=== PATIENT | male | born 1985 | race African-American/Black ===

== ENCOUNTER 2016-10-25 10:39 | Inpatient (IN) | payer OTHER ==
[2016-10-25 11:36] VITALS: BMI 25.0
--- NOTE | 2016-10-25 13:32 | HP ---
CIWA Score - CIWA Score Nausea/Vomitin Muscle Tremors: 3 Anxiety: 3 Agitation: 3 Paroxysmal Sweats: 1-Minimal Palms Moist Orientation: 3-Disoriented Date>2 days Tacttile Disturbances: 2-Mild Itch/Numbness/Burn Auditory Disturbances: 2-Mild Harshness/Frighten Visual Disturbances: 2-Mild Sensitivity Headache: 2-Mild CIWA-Ar Total Score: 24 Admission ROS S - HPI Chief Complaint: i amhe re for detox from alcohol,xanaxheroin abused Allergies/Adverse Reactions: Allergies Allergy/AdvReac Type Severity Reaction Status Date / Time egg Allergy Severe Hives Verified 10/25/16 12:25 fish derived Allergy Severe Swelling Verified 10/25/16 12:25 onion Allergy Severe Itching Verified 10/25/16 12:25 No Known Drug Allergies Allergy Verified 10/25/16 12:25 raisins Allergy Severe diarrhea Uncoded 10/25/16 12:25 History of Present Illness: this 31 yeas old male with alcohol,xanax dependence,heroin abused,withdrawal symptom,last detox 06/03/16 to 06/05/16 [facility] syncope anxiety,depression nicotine dependence longest period of sobriety 8 months - Ebola screening Have you traveled outside of the country in the last 21 days: No (N) Have you had contact with anyone from an Ebola affected area: No Have you been sick,other than usual withdrawal symptoms: No Do you have a fever: No - Review of Systems Constitutional: Loss of Appetite, Malaise, Night Sweats, Changes in sleep, Weakness, Unintentional Wgt. Loss EENT: reports: Nose Congestion Respiratory: reports: No Symptoms reported Cardiac: reports: Palpitations GI: reports: Diarrhea, Nausea, Vomiting, Abdominal cramping : reports: No Symptoms Reported Musculoskeletal: reports: Back Pain, Joint Pain, Muscle Pain Integumentary: reports: Dryness Neuro: reports: Headache, Tremors Endocrine: reports: No Symptoms Reported Hematology: reports: No Symptoms Reported Psychiatric: reports: Anxious, Depressed Patient History - Patient Medical History Hx Anemia: No Hx Asthma: No Hx Chronic Obstructive Pulmonary Disease (COPD): No Hx Cancer: No Hx Cardiac Disorders: No Hx Congestive Heart Failure: No Hx Hypertension: No Hx Hypercholesterolemia: No Hx Pacemaker: No HX Cerebrovascular Accident: No Hx Seizures: No Hx Dementia: No Hx Diabetes: No Hx Gastrointestinal Disorders: No Hx Liver Disease: No Hx Genitourinary Disorders: No Hx Sexually Transmitted Disorders: No Hx Renal Disease (ESRD): No Hx Thyroid Disease: No Hx Human Immunodeficiency Virus (HIV): No (NEGATIVE HX LAST 03/08) Hx Hepatitis C: No Hx Depression: Yes (anxiety) Hx Suicide Attempt: No Hx Bipolar Disorder: No Hx Schizophrenia: No Other Medical History: no suicidal,no homicidal - Patient Surgical History Past Surgical History: No Hx Neurologic Surgery: No Hx Cataract Extraction: No Hx Cardiac Surgery: No Hx Lung Surgery: No Hx Breast Surgery: No Hx Breast Biopsy: No Hx Abdominal Surgery: No Hx Appendectomy: No Hx Cholecystectomy: No Hx Genitourinary Surgery: No Hx Section: No Hx Orthopedic Surgery: No Anesthesia Reaction: No - PPD History Previous Implant?: Yes Implanted On Prior [facility] Admission?: Yes Date: 10/24/15 Results: 0 MM PPD to be Administered?: Yes - Smoking Cessation Smoking history: Current every day smoker Have you smoked in the past 12 months: Yes Aproximately how many cigarettes per day: 20 Hx Chewing Tobacco Use: No Initiated information on smoking cessation: Yes 'Breaking Loose' booklet given: 10/25/16 - Substance & Tx. History Hx Alcohol Use: Yes Hx Substance Use: Yes Substance Use Type: Alcohol, Cocaine, Heroin Hx Substance Use Treatment: Yes ([facility] 06/03/16 06/05/16) - Substances Abused Alcohol Route: Oral Frequency: Daily Amount used: 12 beer 24 ozs Age of first use: 15 Date of Last Use: 10/24/16 Cocaine Route: Inhalation Frequency: Daily Amount used: 2gram Age of first use: 18 Date of Last Use: 10/22/16 Heroin Route: Inhalation Frequency: Daily Amount used: 1gm Age of first use: 26 Date of Last Use: 10/22/16 Alprazolam (Xanax) Route: Oral Frequency: 3-6 times per week Amount used: 2 to 6 mgs Age of first use: 26 Date of Last Use: 10/23/16 Family Disease History - Family Disease History Family History: Denies Admission Physical Exam BHS - Vital Signs Vital Signs: Vital Signs - 24 hr 10/25/16 11:34 Temperature 97.4 F L Pulse Rate 70 Respiratory 20 Rate Blood Pressure 129/71 - Physical General Appearance: Yes: Moderate Distress, Tremorous, Irritable, Anxious HEENTM: Yes: Nasal Congestion Respiratory: Yes: Lungs Clear Neck: Yes: Within Normal Limits Breast: Yes: Within Normal Limits Cardiology: Yes: Within Normal Limits, Regular Rhythm, Regular Rate, S1, S2 Abdominal: Yes: Within Normal Limits, Normal Bowel Sounds, Non Tender, Flat, Soft Genitourinary: Yes: Within Normal Limits Back: Yes: Muscle Spasm Musculoskeletal: Yes: Back pain, Joint Stiffness, Muscle Pain Extremities: Yes: Tremors Neurological: Yes: 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 NML intact, Fully Oriented, Alert, Motor Strength 5/5 Integumentary: Yes: Dry Lymphatic: Yes: Within Normal Limits - Diagnostic (1) Alcohol dependence with uncomplicated withdrawal Current Visit: No Status: Acute (2) Cocaine dependence, uncomplicated Current Visit: No Status: Acute (3) Nicotine dependence Current Visit: No Status: Acute Qualifiers: Nicotine product type: cigarettes Substance use status: uncomplicated Qualified Code(s): F17.210 - Nicotine dependence, cigarettes, uncomplicated (4) Sedative, hypnotic or anxiolytic abuse, uncomplicated Current Visit: Yes Status: Acute (5) Weight loss Current Visit: Yes Status: Acute (6) Heroin abuse Current Visit: Yes Status: Acute Cleared for Admission [facility] - Detox or Rehab [facility] Level of Care: Medically Managed Detox Regimen/Protocol: Valium [facility] Breath Alcohol Content Breath Alcohol Content: 0.084 Urine Drug Screen - Results Drug Screen Negative: No Urine Drug Screen Results: ODALIS-Cocaine, BZO-Benzodiazepines
[2016-10-25] MEDS ORDERED: ACETAMINOPHEN 325 MG TABLET (FP) PO PRN (13:47)
[2016-10-25] MEDS ORDERED: diphenhydrAMINE HCL 50 MG CAPSULE PO PRN (13:47)
[2016-10-25] MEDS ORDERED: diazePAM 5 MG TABLET PO PRN (13:47)
[2016-10-25] MEDS ORDERED: MAGNESIUM HYDROX 2400MG/30ML ORAL SUSPENSION 30 ML CUP PO PRN (13:47)
[2016-10-25] MEDS ORDERED: IBUPROFEN 400 MG TABLET (FP) PO PRN (13:47)
[2016-10-25] MEDS ORDERED: P-EPHED 60MG/TRIPROLIDI 2.5MG TABLET PO PRN (13:47)
[2016-10-25] MEDS ORDERED: hydrOXYzine PAMOATE 50 MG CAPSULE (FP) PO PRN (13:47)
[2016-10-25] MEDS ORDERED: LOPERAMIDE HCL 2 MG CAPSULE PO PRN (13:47)
[2016-10-25] MEDS ORDERED: guaiFENesin/D-METHORPHAN HB 10 ML UNIT-DOSE CUPS PO PRN (13:47)
[2016-10-25] MEDS ORDERED: MAGNESIUM CITRATE 300 ML BOTTLE PO PRN (13:47)
[2016-10-25] MEDS ORDERED: MENTHOL/PHENOL 1 EACH UD MM PRN (13:47)
[2016-10-25] MEDS ORDERED: MAG HYDROX/AL HYDROX/SIMETH 30 ML UNIT-DOSE CUP PO PRN (13:47)
[2016-10-25] MEDS ORDERED: CYCLOBENZAPRINE HCL 10 MG TABLET (FP) PO PRN (13:52)
[2016-10-25] MEDS: diazePAM 5 MG TABLET PO SCH ×2 (14:43→22:36)
[2016-10-25] MEDS: NICOTINE 21 MG/24 HOURS TOPICAL PATCH TD SCH (14:44)
[2016-10-25] MEDS ORDERED: diazePAM 5 MG TABLET PO ONE (14:45)
[2016-10-25] MEDS: THIAMINE HCL 100 MG TABLET (FP) PO SCH (22:35)
[2016-10-25] MEDS: NAPROXEN 500 MG TABLET (FP) PO SCH (22:35)
[2016-10-25] MEDS: cloNIDine HCL 0.1 MG TABLET PO SCH (22:35)
[2016-10-25 22:53] LABS: URINE APPEARANCE CLEAR; URINE BILIRUBIN NEGATIVE (NEGATIVE); URINE BLOOD NEGATIVE (NEGATIVE); URINE COLOR YELLOW; URINE GLUCOSE (UA) NEGATIVE (NEGATIVE); URINE KETONE TRACE (NEGATIVE); URINE LEUK ESTERASE NEGATIVE (NEGATIVE); URINE NITRITE NEGATIVE (NEGATIVE); URINE PROTEIN NEGATIVE (NEGATIVE); URINE UROBILINOGEN NEGATIVE E.U./dl (0.2-1.0)
[2016-10-26] MEDS: diazePAM 5 MG TABLET PO SCH ×3 (05:55→22:25)
[2016-10-26] MEDS: NICOTINE 21 MG/24 HOURS TOPICAL PATCH TD SCH (10:25)
[2016-10-26] MEDS: PRENATAL VITAMINS W/ FOLIC ACID TABLET (FP) PO SCH (10:25)
[2016-10-26] MEDS: cloNIDine HCL 0.1 MG TABLET PO SCH ×2 (10:25→22:25)
[2016-10-26] MEDS: NAPROXEN 500 MG TABLET (FP) PO SCH ×2 (10:25→22:25)
[2016-10-26 10:59] LABS: MCH 31.5 pg (25.7-33.7); MCHC 33.2 g/dl (32.0-35.9); MEAN PLT VOLUME 7.9 fl (7.5-11.1); PLATELET COUNT 195 K/MM3 (134-434); RDW 13.4 % (11.9-15.9); WHITE BLOOD COUNT 3.5 K/mm3 (4.0-10.0)
[2016-10-26 11:22] LABS: ALBUMIN 3.9 g/dl (3.4-5.0); CALCIUM 8.8 mg/dL (8.5-10.1); CREATININE 1.5 mg/dL (0.7-1.3); TOT PROT 7.7 g/dl (6.4-8.2)
[2016-10-26 11:43] LABS: HIV 1 & 2 AB NEGATIVE; HIV 1 AGp24 NEGATIVE
--- NOTE | 2016-10-26 13:33 | PN ---
S CIWA - CIWA Score Nausea/Vomitin-No Nausea/No Vomiting Muscle Tremors: 4-Moderate,w/Arms Extend Anxiety: 3 Agitation: 3 Paroxysmal Sweats: 3 Orientation: 0-Oriented Tacttile Disturbances: 0-None Auditory Disturbances: 0-None Visual Disturbances: 0-None Headache: 0-None Present CIWA-Ar Total Score: 13 BHS Progress Note (SOAP) Subjective: ANXIETY,TREMORS,SWEATING,INTERRUPTED SLEEP,RESTLESS Objective: 10/26/16 13:34 Vital Signs - 8 hr 10/26/16 10/26/16 06:46 10:53 Temperature 96.8 F L 97.4 F L Pulse Rate 67 68 Respiratory 18 19 Rate Blood Pressure 128/75 132/86 Laboratory Tests 10/25/16 10/25/16 10/26/16 06:30 22:40 06:30 WBC 3.5 L D RBC 4.55 Hgb 14.3 Hct 43.2 MCV 95.0 MCHC 33.2 RDW 13.4 Plt Count 195 MPV 7.9 Sodium Potassium Chloride Carbon Dioxide Anion Gap BUN Creatinine Creat Clearance w eGFR Random Glucose Calcium Total Bilirubin AST ALT Alkaline Phosphatase Total Protein Albumin Urine Color Yellow Urine Appearance Clear Urine pH 5.0 Ur Specific [place] 1.017 Urine Protein Negative Urine Glucose (UA) Negative Urine Ketones Trace H Urine Blood Negative Urine Nitrite Negative Urine Bilirubin Negative Urine Urobilinogen Negative Ur Leukocyte Esterase Negative RPR Titer HIV 1&2 Antibody Screen Negative HIV P24 Antigen Negative 10/26/16 10/26/16 06:30 06:30 WBC RBC Hgb Hct MCV MCHC RDW Plt Count MPV Sodium 138 Potassium 3.8 Chloride 101 Carbon Dioxide 30 Anion Gap 7 L BUN 19 H D Creatinine 1.5 H D Creat Clearance w eGFR 54.24 Random Glucose 91 Calcium 8.8 Total Bilirubin 1.0 D AST 68 H D ALT 48 D Alkaline Phosphatase 100 D Total Protein 7.7 Albumin 3.9 Urine Color Urine Appearance Urine pH Ur Specific [place] Urine Protein Urine Glucose (UA) Urine Ketones Urine Blood Urine Nitrite Urine Bilirubin Urine Urobilinogen Ur Leukocyte Esterase RPR Titer Nonreactive HIV 1&2 Antibody Screen HIV P24 Antigen LABS NOTED Assessment: 10/26/16 13:35 WITHDRAWAL SX. Plan: CONTINUE DETOX
--- NOTE | 2016-10-26 15:36 | CONSULT ---
[facility] Psychiatric Consult - Data Date of interview: 10/26/16 Admission source: [facility] Identifying data: This is one of multiple admissions to [facility] for this 31 y/ o AA male seeking detox treatment on for alcohol,cocaine,heroin and benzodiazepine (xanax) dependence.Patient is single without children,homeless, unemployed and deprived of any source of income. Substance Abuse History: - Smoking Cessation. Smoking history: Current every day smoker. Have you smoked in the past 12 months: Yes. Aproximately how many cigarettes per day: 20. Hx Chewing Tobacco Use: No. Initiated information on smoking cessation: Yes. 'Breaking Loose' booklet given: 10/25/16. - Substance & Tx. History. Hx Alcohol Use: Yes. Hx Substance Use: Yes. Substance Use Type : Alcohol, Cocaine, Heroin. Hx Substance Use Treatment: Yes ([facility] 06/03/16). - Substances Abused. Alcohol. Route: Oral. Frequency: Daily. Amount used: 12 beer 24 ozs. Age of first use: 15. Date of Last Use: . Cocaine. Route: Inhalation. Frequency: Daily. Amount used: 2gram. Age of first use: 18. Date of Last Use: 10/22/16. Heroin. Route: Inhalation. Frequency: Daily. Amount used: 1gm. Age of first use: 26. Date of Last Use: 10/22/16. Alprazolam (Xanax). Route: Oral. Frequency: 3-6 times per week. Amount used: 2 to 6 mgs. Age of first use: 26. Date of Last Use: 10/23/16. Confirmed by patient. Medical History: Significant for alopecia areata and sciatica. Psychiatric History: Patient denies. Physical/Sexual Abuse/Trauma History: Patient denies. Additional Comment: Urine Drug Screen Results: ODALIS-Cocaine, BZO- Benzodiazepines.Noted. Mental Status Exam - Mental Status Exam Alert and Oriented to: Time, Place, Person Cognitive Function: Good Patient Appearance: Well Groomed Mood: Hopeful, Euthymic Affect: Normal Range Patient Behavior: Appropriate, Cooperative Speech Pattern: Clear Voice Loudness: Normal Thought Process: Goal Oriented Thought Disorder: Not Present Hallucinations: Denies Suicidal Ideation: Denies Homicidal Ideation: Denies Insight/Judgement: Poor Sleep: Well Appetite: Good Muscle strength/Tone: Normal Gait/Station: Normal Psychiatric Findings - Problem List ([place] 1, 2,3) (1) Sedative, hypnotic or anxiolytic abuse, uncomplicated Current Visit: Yes Status: Acute (2) Alcohol dependence with uncomplicated withdrawal Current Visit: Yes Status: Acute (3) Nicotine dependence Current Visit: Yes Status: Acute Qualifiers: Nicotine product type: cigarettes Substance use status: uncomplicated Qualified Code(s): F17.210 - Nicotine dependence, cigarettes, uncomplicated (4) Cocaine dependence, uncomplicated Current Visit: Yes Status: Acute (5) Opioid dependence with withdrawal Current Visit: Yes Status: Acute (6) Substance induced mood disorder Current Visit: Yes Status: Acute (7) Alopecia areata Current Visit: Yes Status: Chronic (8) Sciatica Current Visit: Yes Status: Chronic Qualifiers: Laterality: bilateral Qualified Code(s): M54.31 - Sciatica, right side - Initial Treatment Plan Initial Treatment Plan: Psychoeducation.Detoxification.Observation.
[2016-10-26] MEDS: THIAMINE HCL 100 MG TABLET (FP) PO SCH (22:25)
[2016-10-27] MEDS ORDERED: diazePAM 5 MG TABLET PO SCH (10:00)
[2016-10-27] MEDS: NAPROXEN 500 MG TABLET (FP) PO SCH (10:23)
[2016-10-27] MEDS: PRENATAL VITAMINS W/ FOLIC ACID TABLET (FP) PO SCH (10:23)
[2016-10-27] MEDS: cloNIDine HCL 0.1 MG TABLET PO SCH (10:24)
[2016-10-27] MEDS: NICOTINE 21 MG/24 HOURS TOPICAL PATCH TD SCH (10:24)
--- NOTE | 2016-10-27 11:23 | PN ---
[facility] CIWA - CIWA Score Nausea/Vomitin Muscle Tremors: 3 Anxiety: 3 Agitation: 2 Paroxysmal Sweats: 1-Minimal Palms Moist Orientation: 0-Oriented Tacttile Disturbances: 1-Very Mild Itch/Numbness Auditory Disturbances: 1-Very Mild Visual Disturbances: 1-Very Mild Sensitivity Headache: 2-Mild CIWA-Ar Total Score: 17 BHS Progress Note (SOAP) Subjective: ALERT,IRRITABLE,ANXIOUS,INTERRUPTED SLEEP,TREMOR,INTERRUPTED SLEEP Objective: 10/27/16 11:20 Vital Signs Temperature 96.9 F L 10/27/16 09:48 Pulse Rate 72 10/27/16 09:48 Respiratory Rate 20 10/27/16 09:48 Blood Pressure 113/73 10/27/16 09:48 O2 Sat by Pulse Oximetry (%) EKG NSR NO CHEST PAIN,NO SOB,NO DIZZINESS Laboratory Last Values WBC 3.5 K/mm3 (4.0-10.0) L D 10/26/16 06:30 RBC 4.55 M/mm3 (4.00-5.60) 10/26/16 06:30 Hgb 14.3 GM/dL (11.7-16.9) 10/26/16 06:30 Hct 43.2 % (35.4-49) 10/26/16 06:30 MCV 95.0 fl (80-96) 10/26/16 06:30 MCHC 33.2 g/dl (32.0-35.9) 10/26/16 06:30 RDW 13.4 % (11.9-15.9) 10/26/16 06:30 Plt Count 195 K/MM3 (134-434) 10/26/16 06:30 MPV 7.9 fl (7.5-11.1) 10/26/16 06:30 Sodium 138 mmol/L (136-145) 10/26/16 06:30 Potassium 3.8 mmol/L (3.5-5.1) 10/26/16 06:30 Chloride 101 mmol/L (98-107) 10/26/16 06:30 Carbon Dioxide 30 mmol/L (21-32) 10/26/16 06:30 Anion Gap 7 (8-16) L 10/26/16 06:30 BUN 19 mg/dL (7-18) H D 10/26/16 06:30 Creatinine 1.5 mg/dL (0.7-1.3) H D 10/26/16 06:30 Creat Clearance w eGFR 54.24 (>60) 10/26/16 06:30 Random Glucose 91 mg/dL (74-106) 10/26/16 06:30 Calcium 8.8 mg/dL (8.5-10.1) 10/26/16 06:30 Total Bilirubin 1.0 mg/dL (0.2-1.0) D 10/26/16 06:30 AST 68 U/L (15-37) H D 10/26/16 06:30 ALT 48 U/L (12-78) D 10/26/16 06:30 Alkaline Phosphatase 100 U/L (45-117) D 10/26/16 06:30 Total Protein 7.7 g/dl (6.4-8.2) 10/26/16 06:30 Albumin 3.9 g/dl (3.4-5.0) 10/26/16 06:30 Urine Color Yellow 10/25/16 22:40 Urine Appearance Clear 10/25/16 22:40 Urine pH 5.0 (5.0-8.0) 10/25/16 22:40 Ur Specific [place] 1.017 (1.001-1.035) 10/25/16 22:40 Urine Protein Negative (NEGATIVE) 10/25/16 22:40 Urine Glucose (UA) Negative (NEGATIVE) 10/25/16 22:40 Urine Ketones Trace (NEGATIVE) H 10/25/16 22:40 Urine Blood Negative (NEGATIVE) 10/25/16 22:40 Urine Nitrite Negative (NEGATIVE) 10/25/16 22:40 Urine Bilirubin Negative (NEGATIVE) 10/25/16 22:40 Urine Urobilinogen Negative E.U./dl (0.2-1.0) 10/25/16 22:40 Ur Leukocyte Esterase Negative (NEGATIVE) 10/25/16 22:40 RPR Titer Nonreactive (NONREACTIVE) 10/26/16 06:30 HIV 1&2 Antibody Screen Negative 10/25/16 06:30 HIV P24 Antigen Negative 10/25/16 06:30 Assessment: 10/27/16 11:22 WITHDRAWAL SYMPTOM Plan: CONTINUE DETOX,ENCOURAGE ORAL FLUID,REPEAT CMP IN AM
--- NOTE | 2016-10-27 14:47 | PN ---
S Progress Note Note: PATIENT FEEL MUCH BETTER,LESS WITHDRAWAL SYMPTOM,STATED WOULD LIKE TO BE DISCHARGE IN AM AT 07.00 FOR PERSONAL APPOINTMENT,ADVISE TO DRINK PLENTY OF FLUID,FOLLOW UP WITH PMD FOR MEDICAL PROBLEM AND FOLLOW UP BLOOD TEST
[2016-10-27 17:18] VITALS: BP 109/67; PULSE 79; TEMP 97.9
--- NOTE | 2016-10-27 23:02 | DS ---
[facility] Detox Discharge Summary Admission Date: 10/25/16 Discharge Date: 10/27/16 - History Present History: Alcohol Dependence, Cocaine Dependence, Opioid Dependence, Sedative Dependence Additional Comments: 31 years old male came to [facility] for benzo detox on 10/25/16, original regimen discharge date 10/24/05, been modified to 10/28, patient insists to leave the unit refuses to wait for face to face with the provider Pertinent Past History: nicotine dependence - Physical Exam Results Vital Signs: Vital Signs Temperature 97.9 F 10/27/16 17:17 Pulse Rate 79 10/27/16 17:17 Respiratory Rate 18 10/27/16 17:17 Blood Pressure 109/67 10/27/16 17:17 O2 Sat by Pulse Oximetry (%) Pertinent Admission Physical Exam Findings: withdrawal sx Laboratory Last Values WBC 3.5 K/mm3 (4.0-10.0) L D 10/26/16 06:30 RBC 4.55 M/mm3 (4.00-5.60) 10/26/16 06:30 Hgb 14.3 GM/dL (11.7-16.9) 10/26/16 06:30 Hct 43.2 % (35.4-49) 10/26/16 06:30 MCV 95.0 fl (80-96) 10/26/16 06:30 MCHC 33.2 g/dl (32.0-35.9) 10/26/16 06:30 RDW 13.4 % (11.9-15.9) 10/26/16 06:30 Plt Count 195 K/MM3 (134-434) 10/26/16 06:30 MPV 7.9 fl (7.5-11.1) 10/26/16 06:30 Sodium 138 mmol/L (136-145) 10/26/16 06:30 Potassium 3.8 mmol/L (3.5-5.1) 10/26/16 06:30 Chloride 101 mmol/L (98-107) 10/26/16 06:30 Carbon Dioxide 30 mmol/L (21-32) 10/26/16 06:30 Anion Gap 7 (8-16) L 10/26/16 06:30 BUN 19 mg/dL (7-18) H D 10/26/16 06:30 Creatinine 1.5 mg/dL (0.7-1.3) H D 10/26/16 06:30 Creat Clearance w eGFR 54.24 (>60) 10/26/16 06:30 Random Glucose 91 mg/dL (74-106) 10/26/16 06:30 Calcium 8.8 mg/dL (8.5-10.1) 10/26/16 06:30 Total Bilirubin 1.0 mg/dL (0.2-1.0) D 10/26/16 06:30 AST 68 U/L (15-37) H D 10/26/16 06:30 ALT 48 U/L (12-78) D 10/26/16 06:30 Alkaline Phosphatase 100 U/L (45-117) D 10/26/16 06:30 Total Protein 7.7 g/dl (6.4-8.2) 10/26/16 06:30 Albumin 3.9 g/dl (3.4-5.0) 10/26/16 06:30 Urine Color Yellow 10/25/16 22:40 Urine Appearance Clear 10/25/16 22:40 Urine pH 5.0 (5.0-8.0) 10/25/16 22:40 Ur Specific [place] 1.017 (1.001-1.035) 10/25/16 22:40 Urine Protein Negative (NEGATIVE) 10/25/16 22:40 Urine Glucose (UA) Negative (NEGATIVE) 10/25/16 22:40 Urine Ketones Trace (NEGATIVE) H 10/25/16 22:40 Urine Blood Negative (NEGATIVE) 10/25/16 22:40 Urine Nitrite Negative (NEGATIVE) 10/25/16 22:40 Urine Bilirubin Negative (NEGATIVE) 10/25/16 22:40 Urine Urobilinogen Negative E.U./dl (0.2-1.0) 10/25/16 22:40 Ur Leukocyte Esterase Negative (NEGATIVE) 10/25/16 22:40 RPR Titer Nonreactive (NONREACTIVE) 10/26/16 06:30 HIV 1&2 Antibody Screen Negative 10/25/16 06:30 HIV P24 Antigen Negative 10/25/16 06:30 lab noted - Treatment Hospital Course: Detox Protocol Followed, Responded well - Medication Discharge Medications: Ambulatory Orders Naproxen [Naprosyn -] 500 mg PO BID 06/25/16 - Diagnosis (1) Alcohol dependence with uncomplicated withdrawal Status: Acute (2) Nicotine dependence Status: Acute Qualifiers: Nicotine product type: cigarettes Substance use status: uncomplicated Qualified Code(s): F17.210 - Nicotine dependence, cigarettes, uncomplicated (3) Opioid dependence with withdrawal Status: Acute (4) Weight loss Status: Acute - AMA Did Patient Leave Against Medical Advice: Yes
[2016-10-29] MEDS ORDERED: diazePAM 5 MG TABLET PO SCH (10:00)
== END 2016-10-27 19:36 | disposition left against medical advice (07) | DRG 770 ==
LOC: YASAS 10:39 → Y3N 13:37
PROVIDERS: ADMIT Internal Medicine; ATTEND Internal Medicine
PROC: HZ2ZZZZ Detoxification Services for Substance Abuse Treatment (ICD-10-PCS; principal; 2016-10-25)
DX: F11.23 Opioid dependence with withdrawal (principal); F10.230 Alcohol dependence with withdrawal, uncomplicated; F14.20 Cocaine dependence, uncomplicated; F13.10 Sedative, hypnotic or anxiolytic abuse, uncomplicated; F17.210 Nicotine dependence, cigarettes, uncomplicated; F19.24 Other psychoactive substance dependence with psychoactive substance-induced mood disorder; F41.9 Anxiety disorder, unspecified; L63.9 Alopecia areata, unspecified; M54.31 Sciatica, right side; Z87.898 Personal history of other specified conditions; Z86.79 Personal history of other diseases of the circulatory system
CPT/HCPCS: 36415; 80053; 81003; 85027; 86593; 87389; 93005; 93010

== ENCOUNTER 2016-11-28 19:57 | Inpatient (IN) | payer OTHER ==
--- NOTE | 2016-11-28 20:26 | HP ---
CIWA Score - CIWA Score Nausea/Vomitin Muscle Tremors: 3 Anxiety: 3 Agitation: 2 Paroxysmal Sweats: 2 Orientation: 0-Oriented Tacttile Disturbances: 1-Very Mild Itch/Numbness Auditory Disturbances: 0-None Visual Disturbances: 1-Very Mild Sensitivity Headache: 2-Mild CIWA-Ar Total Score: 16 Admission ROS S - HPI Chief Complaint: WITHDRAWAL SYMPTOMS Allergies/Adverse Reactions: Allergies Allergy/AdvReac Type Severity Reaction Status Date / Time egg Allergy Severe Hives Verified 10/25/16 12:25 onion Allergy Severe Itching Verified 10/25/16 12:25 No Known Drug Allergies Allergy Verified 10/25/16 12:25 raisins Allergy Severe diarrhea Uncoded 10/25/16 12:25 History of Present Illness: 31 Y.O. MALE WITH AN EXTENSIVE HISTORY OF DRUG AND ALCOHOL DEPENDENCE IS SEEKING DETOX FROM ALCOHOL. HE WAS LAST ADMITTED TO [facility] IN 10/2016 HOWEVER HE LEFT AMA. Exam Limitations: No Limitations - Ebola screening Have you traveled outside of the country in the last 21 days: No Have you had contact with anyone from an Ebola affected area: No Do you have a fever: No - Review of Systems Constitutional: Chills, Loss of Appetite, Night Sweats, Changes in sleep, Unintentional Wgt. Loss EENT: reports: Blurred Vision, Tearing, Nose Congestion Respiratory: reports: No Symptoms reported Cardiac: reports: Palpitations GI: reports: Poor Appetite : reports: No Symptoms Reported Musculoskeletal: reports: No Symptoms Reported Integumentary: reports: No Symptoms Reported Neuro: reports: Headache, Tremors Endocrine: reports: No Symptoms Reported Hematology: reports: No Symptoms Reported Psychiatric: reports: Orientated x3 Other Systems: Reviewed and Negative Patient History - Patient Medical History Hx Anemia: No Hx Asthma: No Hx Chronic Obstructive Pulmonary Disease (COPD): No Hx Cancer: No Hx Cardiac Disorders: No Hx Congestive Heart Failure: No Hx Hypertension: No Hx Hypercholesterolemia: No Hx Pacemaker: No HX Cerebrovascular Accident: No Hx Seizures: No Hx Dementia: No Hx Diabetes: No Hx Gastrointestinal Disorders: No Hx Liver Disease: No Hx Genitourinary Disorders: No Hx Sexually Transmitted Disorders: No Hx Renal Disease (ESRD): No Hx Thyroid Disease: No Hx Human Immunodeficiency Virus (HIV): No (NEGATIVE HX LAST 03/08) Hx Hepatitis C: No Hx Depression: Yes (anxiety) Hx Suicide Attempt: No Hx Bipolar Disorder: No Hx Schizophrenia: No - Patient Surgical History Past Surgical History: No Hx Neurologic Surgery: No Hx Cataract Extraction: No Hx Cardiac Surgery: No Hx Lung Surgery: No Hx Breast Surgery: No Hx Breast Biopsy: No Hx Abdominal Surgery: No Hx Appendectomy: No Hx Cholecystectomy: No Hx Genitourinary Surgery: No Hx Section: No Hx Orthopedic Surgery: No Anesthesia Reaction: No - PPD History Previous Implant?: Yes Documented Results: Negative w/proof Implanted On Prior [facility] Admission?: Yes Date: 10/27/16 Results: 0 MM PPD to be Administered?: No - Reproductive History Patient is a Female of Child Bearing Age (11 -55 yrs old): No - Smoking Cessation Smoking history: Current every day smoker Have you smoked in the past 12 months: Yes Aproximately how many cigarettes per day: 10 Hx Chewing Tobacco Use: No Initiated information on smoking cessation: Yes 'Breaking Loose' booklet given: 11/28/16 - Substance & Tx. History Hx Alcohol Use: Yes Hx Substance Use: Yes Substance Use Type: Alcohol, Cocaine Hx Substance Use Treatment: Yes ([facility] ) - Substances Abused Alcohol Route: Oral Frequency: Daily Amount used: 2 PINTS OF LIQUOR & 3 16OZ CANS OF BEER Age of first use: 14 Date of Last Use: 11/28/16 Cocaine Route: Inhalation Frequency: 3-6 times per week Amount used: 4GM Age of first use: 18 Date of Last Use: 11/28/16 KLONOPIN Route: Oral Frequency: 3-6 times per week Amount used: 3MG Age of first use: 26 Date of Last Use: 11/28/16 Family Disease History - Family Disease History Family History: Denies Admission Physical Exam BHS - Vital Signs Vital Signs: Last Vital Signs Temp Pulse Resp BP Pulse Ox 97.2 F L 88 19 147/77 11/28/16 20:50 11/28/16 20:50 11/28/16 20:50 11/28/16 20:50 - Physical General Appearance: Yes: Disheveled, Tremorous, Irritable, Sweating HEENTM: Yes: Nasal Congestion Respiratory: Yes: Chest Non-Tender, Lungs Clear, Normal Breath Sounds, No Respiratory Distress, No Accessory Muscle Use Neck: Yes: No masses,lesions,Nodules, Trachea in good position Breast: Yes: Breast Exam Deferred Cardiology: Yes: Regular Rhythm, Regular Rate Abdominal: Yes: Normal Bowel Sounds, Non Tender, Flat, Soft Genitourinary: Yes: Within Normal Limits Back: Yes: Normal Inspection Musculoskeletal: Yes: full range of Motion, Gait Steady, Pelvis Stable Extremities: Yes: Normal Capillary Refill, Normal Inspection, Normal Range of Motion, Non-Tender Neurological: Yes: Fully Oriented, Alert, Motor Strength 5/5, Normal Mood/Affect , Normal Response Integumentary: Yes: Normal Color, Dry, Warm Lymphatic: Yes: Within Normal Limits - Diagnostic (1) Alcohol dependence with uncomplicated withdrawal Current Visit: Yes Status: Chronic (2) Cocaine dependence, uncomplicated Current Visit: Yes Status: Chronic (3) Nicotine dependence Current Visit: Yes Status: Chronic Qualifiers: Nicotine product type: cigarettes Substance use status: uncomplicated Qualified Code(s): F17.210 - Nicotine dependence, cigarettes, uncomplicated (4) Weight loss Current Visit: Yes Status: Acute Cleared for Admission [facility] - Detox or Rehab [facility] Level of Care: Medically Managed Detox Regimen/Protocol: Librium S Breath Alcohol Content Breath Alcohol Content: 0 Vital Signs - Vital Signs Vital Signs Refused: No Temperature: 97.2 F Temperature Source: Oral Pulse Rate: 88 Respiratory Rate: 19 Blood Pressure: 147/77 BP Location: Left Arm Blood Pressure Position: Sitting - Height Height: 6 ft - Weight Weight: 189 lb Weight Measurement Method: Standing Scale Body Mass Index (BMI): 25.6 Urine Drug Screen - Control Is Test Valid: Yes - Results Drug Screen Negative: No Urine Drug Screen Results: ODALIS-Cocaine
[2016-11-28] MEDS ORDERED: diphenhydrAMINE HCL 50 MG CAPSULE PO PRN (20:39)
[2016-11-28] MEDS ORDERED: MENTHOL/PHENOL 1 EACH UD MM PRN (20:39)
[2016-11-28] MEDS ORDERED: LOPERAMIDE HCL 2 MG CAPSULE PO PRN (20:39)
[2016-11-28] MEDS ORDERED: ACETAMINOPHEN 325 MG TABLET (FP) PO PRN (20:39)
[2016-11-28] MEDS ORDERED: MAG HYDROX/AL HYDROX/SIMETH 30 ML UNIT-DOSE CUP PO PRN (20:39)
[2016-11-28] MEDS ORDERED: guaiFENesin/D-METHORPHAN HB 10 ML UNIT-DOSE CUPS PO PRN (20:39)
[2016-11-28] MEDS ORDERED: MAGNESIUM CITRATE 300 ML BOTTLE PO PRN (20:39)
[2016-11-28] MEDS ORDERED: P-EPHED 60MG/TRIPROLIDI 2.5MG TABLET PO PRN (20:39)
[2016-11-28] MEDS ORDERED: chlordiazePOXIDE HCL 25 MG CAPSULE PO PRN (20:39)
[2016-11-28] MEDS ORDERED: hydrOXYzine PAMOATE 50 MG CAPSULE (FP) PO PRN (20:39)
[2016-11-28] MEDS ORDERED: IBUPROFEN 400 MG TABLET (FP) PO PRN (20:39)
[2016-11-28] MEDS ORDERED: MAGNESIUM HYDROX 2400MG/30ML ORAL SUSPENSION 30 ML CUP PO PRN (20:39)
[2016-11-28] MEDS ORDERED: chlordiazePOXIDE HCL 25 MG CAPSULE PO ONE (20:39)
[2016-11-28 20:50] VITALS: BMI 25.6
[2016-11-28] MEDS: chlordiazePOXIDE HCL 25 MG CAPSULE PO SCH (22:16)
[2016-11-28] MEDS: THIAMINE HCL 100 MG TABLET (FP) PO SCH (22:16)
[2016-11-29] MEDS: chlordiazePOXIDE HCL 25 MG CAPSULE PO SCH ×4 (06:09→22:44)
--- NOTE | 2016-11-29 10:06 | PN ---
S CIWA - CIWA Score Nausea/Vomitin-No Nausea/No Vomiting Muscle Tremors: 4-Moderate,w/Arms Extend Anxiety: 4-Mod. Anxious/Guarded Agitation: 4-Moderately Restless Paroxysmal Sweats: 3 Orientation: 0-Oriented Tacttile Disturbances: 0-None Auditory Disturbances: 0-None Visual Disturbances: 0-None Headache: 0-None Present CIWA-Ar Total Score: 15 BHS Progress Note (SOAP) Subjective: tired sweats shakes interrupted sleep body aches Objective: 11/29/16 10:39 Vital Signs Temperature 97.3 F L 11/29/16 10:19 Pulse Rate 88 11/29/16 10:19 Respiratory Rate 18 11/29/16 10:19 Blood Pressure 136/76 11/29/16 10:19 O2 Sat by Pulse Oximetry (%) Laboratory Tests 11/29/16 11/29/16 07:00 07:00 WBC 4.1 RBC 4.74 Hgb 14.9 Hct 44.3 MCV 93.4 MCHC 33.5 RDW 13.3 Plt Count 164 MPV 8.5 Sodium 136 Potassium 4.0 Chloride 101 Carbon Dioxide 28 BUN 15 D Creatinine 1.4 H Creat Clearance w eGFR 58.73 Random Glucose 82 Calcium 9.0 Total Bilirubin 1.5 H D AST 43 H D ALT 39 Alkaline Phosphatase 94 Total Protein 7.8 Albumin 3.6 labs pending awake/alert ambulating no acute distress Assessment: 11/29/16 10:40 withdrawal sx Plan: continue detox increase fluids labs pending
[2016-11-29 10:09] LABS: MCH 31.3 pg (25.7-33.7); MCHC 33.5 g/dl (32.0-35.9); MEAN CELL VOLUME 93.4 fl (80-96); MEAN PLT VOLUME 8.5 fl (7.5-11.1); PLATELET COUNT 164 K/MM3 (134-434); RDW 13.3 % (11.9-15.9); WHITE BLOOD COUNT 4.1 K/mm3 (4.0-10.0)
[2016-11-29 10:27] LABS: ALBUMIN 3.6 g/dl (3.4-5.0); BILIRUBIN,TOTAL 1.5 mg/dL (0.2-1.0); CREATININE 1.4 mg/dL (0.7-1.3); TOT PROT 7.8 g/dl (6.4-8.2)
[2016-11-29] MEDS: PRENATAL VITAMINS W/ FOLIC ACID TABLET (FP) PO SCH (10:37)
[2016-11-29] MEDS: NICOTINE 14 MG/24 HOURS TOPICAL PATCH TD SCH (10:39)
--- NOTE | 2016-11-29 11:29 | CONSULT ---
[id number] [facility] Identifying data: This is 31 years old male with no psychiatric hospitalization history intopxicated wioth: Alcohol, Cocaine, Klonopin and Nicotine, history of Opiuoids abuse as well Substance Abuse History: - Smoking Cessation. Smoking history: Current every day smoker. Have you smoked in the past 12 months: Yes. Aproximately how many cigarettes per day: 10. Hx Chewing Tobacco Use: No. Initiated information on smoking cessation: Yes. 'Breaking Loose' booklet given: 11/28/16. - Substance & Tx. History. Hx Alcohol Use: Yes. Hx Substance Use: Yes. Substance Use Type : Alcohol, Cocaine. Hx Substance Use Treatment: Yes (DETOX AND REHAB ). - Substances Abused. Alcohol. Route: Oral. Frequency: Daily. Amount used: 2 PINTS OF LIQUOR & 3 16OZ CANS OF BEER. Age of first use: 14. Date of Last Use: 11/28/16. Cocaine. Route: Inhalation. Frequency: 3-6 times per week. Amount used: 4GM. Age of first use: 18. Date of Last Use: 11/28/16. KLONOPIN. Route: Oral. Frequency: 3-6 times per week. Amount used: 3MG. Age of first use: 26. Date of Last Use: 11/28/16 Medical History: Weight loss, Sciatica history Psychiatric History: Patioent reports history of anxiety and Depression, reports no medicatuions taking prior to admission Physical/Sexual Abuse/Trauma History: Unclear Additional Comment: Observation. Detx Unit Care Protocol Mental Status Exam - Mental Status Exam Alert and Oriented to: Person Cognitive Function: Fair Patient Appearance: Unkempt Mood: Sad Affect: Flat Patient Behavior: Sedated Speech Pattern: Delayed Voice Loudness: Mildly Soft/Quiet Thought Process: Circumstantial, Disoriented Thought Disorder: Being Controlled Hallucinations: Denies Suicidal Ideation: Denies Homicidal Ideation: Denies Insight/Judgement: Fair Sleep: Difficulty falling asleep Appetite: Weight loss Muscle strength/Tone: Mild Hypotonicity Gait/Station: Shuffling Additional Comments: Observation. Detx Unit Care Protocol Psychiatric Findings - Problem List ([place] 1, 2,3) (1) Anxiety Status: Acute (2) Depression Status: Acute (3) Substance induced mood disorder Status: Acute (4) Alcohol dependence with uncomplicated withdrawal Status: Chronic (5) Cocaine dependence, uncomplicated Status: Chronic (6) Nicotine dependence Status: Chronic Qualifiers: Nicotine product type: cigarettes Substance use status: uncomplicated Qualified Code(s): F17.210 - Nicotine dependence, cigarettes, uncomplicated (7) Opioid dependence with withdrawal Status: Chronic (8) Sedative, hypnotic or anxiolytic abuse, uncomplicated Status: Chronic (9) Drug-induced mood disorder Status: Suspected - Initial Treatment Plan Initial Treatment Plan: Observation. Detx Unit Care Protocol
--- NOTE | 2016-11-29 13:56 | EKG ---
Test Reason : Blood Pressure : / mmHG Vent. Rate : 073 BPM Atrial Rate : 073 BPM P-R Int : 156 ms QRS Dur : 086 ms QT Int : 382 ms P-R-T Axes : 061 052 062 degrees QTc Int : 420 ms NORMAL SINUS RHYTHM WITH SINUS ARRHYTHMIA SEPTAL INFARCT , AGE UNDETERMINED NONSPECIFIC T WAVE ABNORMALITY NO PREVIOUS ECGS AVAILABLE Confirmed by SARAH JUÁREZ MD ([id number]) on 11/29/2016 1:55:54 PM Referred By: Confirmed By:SARAH JUÁREZ MD
[2016-11-29] MEDS: THIAMINE HCL 100 MG TABLET (FP) PO SCH (22:44)
[2016-11-29 23:39] LABS: URINE APPEARANCE CLEAR; URINE BILIRUBIN NEGATIVE (NEGATIVE); URINE BLOOD NEGATIVE (NEGATIVE); URINE COLOR LTYELLOW; URINE GLUCOSE (UA) NEGATIVE (NEGATIVE); URINE KETONE NEGATIVE (NEGATIVE); URINE LEUK ESTERASE NEGATIVE (NEGATIVE); URINE NITRITE NEGATIVE (NEGATIVE); URINE PROTEIN NEGATIVE (NEGATIVE); URINE UROBILINOGEN NEGATIVE E.U./dl (0.2-1.0)
[2016-11-30] MEDS: chlordiazePOXIDE HCL 25 MG CAPSULE PO SCH ×2 (07:34→10:37)
[2016-11-30 10:34] VITALS: BP 130/79; PULSE 86; TEMP 97.3
[2016-11-30] MEDS: PRENATAL VITAMINS W/ FOLIC ACID TABLET (FP) PO SCH (10:36)
[2016-11-30] MEDS: NICOTINE 14 MG/24 HOURS TOPICAL PATCH TD SCH (10:38)
--- NOTE | 2016-11-30 13:25 | PN ---
[facility] Progress Note Note: pt was found by nursing staff in the room exploring his genital to a female pt. security was called and pt was escorted off the unit.
--- NOTE | 2016-11-30 13:30 | DS ---
[facility] Detox Discharge Summary Admission Date: 11/28/16 Discharge Date: 11/30/16 - History Present History: Alcohol Dependence, Cocaine Dependence, Opioid Dependence, Sedative Dependence - Physical Exam Results Vital Signs: Vital Signs Temperature 97.3 F L 11/30/16 10:33 Pulse Rate 86 11/30/16 10:33 Respiratory Rate 16 11/30/16 10:33 Blood Pressure 130/79 11/30/16 10:33 O2 Sat by Pulse Oximetry (%) - Medication Discharge Medications: Ambulatory Orders NK [No Known Home Medication] 11/28/16 - Diagnosis (1) Weight loss Current Visit: Yes Status: Acute (2) Alcohol dependence with uncomplicated withdrawal Current Visit: Yes Status: Chronic (3) Cocaine dependence, uncomplicated Current Visit: Yes Status: Chronic (4) Nicotine dependence Current Visit: Yes Status: Chronic Qualifiers: Nicotine product type: cigarettes Substance use status: uncomplicated Qualified Code(s): F17.210 - Nicotine dependence, cigarettes, uncomplicated (5) Anxiety Current Visit: No Status: Acute (6) Depression Current Visit: No Status: Acute (7) Opioid dependence with withdrawal Current Visit: Yes Status: Chronic (8) Sedative, hypnotic or anxiolytic abuse, uncomplicated Current Visit: Yes Status: Chronic (9) Substance induced mood disorder Current Visit: No Status: Acute (10) Alopecia areata Current Visit: Yes Status: Chronic (11) Sciatica Current Visit: Yes Status: Chronic Qualifiers: Laterality: bilateral Qualified Code(s): M54.31 - Sciatica, right side - AMA Did Patient Leave Against Medical Advice: No (pt did not comply with unit rules)
[2016-11-30] MEDS ORDERED: chlordiazePOXIDE 5 MG CAPSULE PO SCH (23:00)
[2016-12-01] MEDS ORDERED: chlordiazePOXIDE HCL 10 MG CAPSULE PO SCH (23:00)
== END 2016-11-30 11:56 | disposition home or self-care (01) | DRG 773 ==
LOC: YASAS 19:57 → Y6N 20:19
PROVIDERS: ADMIT Internal Medicine Addiction Medicine; ATTEND Internal Medicine Addiction Medicine
PROC: HZ2ZZZZ Detoxification Services for Substance Abuse Treatment (ICD-10-PCS; principal; 2016-11-30)
DX: F11.23 Opioid dependence with withdrawal (principal); F10.230 Alcohol dependence with withdrawal, uncomplicated; F17.210 Nicotine dependence, cigarettes, uncomplicated; F13.10 Sedative, hypnotic or anxiolytic abuse, uncomplicated; F19.24 Other psychoactive substance dependence with psychoactive substance-induced mood disorder; F41.8 Other specified anxiety disorders; F32.9 Major depressive disorder, single episode, unspecified; M54.32 Sciatica, left side; M54.31 Sciatica, right side; L63.8 Other alopecia areata; F91.8 Other conduct disorders
CPT/HCPCS: 36415; 80053; 81003; 85027; 86593; 93005; 93010

== ENCOUNTER 2021-06-15 20:13 | Inpatient (IN) | payer OTHER ==
[2021-06-15 23:49] VITALS: BMI 23.0
[2021-06-16] MEDS ORDERED: ONDANSETRON *ODT* 4 MG TABLET SL PRN (00:28)
[2021-06-16] MEDS ORDERED: methaDONE HCL 10 MG TABLET (FOR DETOX USE ONLY) PO ONE (00:28)
[2021-06-16] MEDS ORDERED: cloNIDine HCL 0.1 MG TABLET PO PRN (00:28)
[2021-06-16] MEDS ORDERED: BISMUTH SUBSALICYLATE 524 MG/30 ML PO PRN (00:28)
[2021-06-16] MEDS ORDERED: MAG HYDROX/AL HYDROX/SIMETH 30 ML UNIT-DOSE CUP PO PRN (00:28)
[2021-06-16] MEDS ORDERED: NICOTINE POLACRILEX 2 MG GUM BUC PRN (00:28)
[2021-06-16] MEDS ORDERED: MAGNESIUM CITRATE 300 ML BOTTLE PO PRN (00:28)
[2021-06-16] MEDS ORDERED: METHOCARBAMOL 500 MG TABLET PO PRN (00:28)
[2021-06-16] MEDS ORDERED: MAGNESIUM HYDROX 2400MG/30ML ORAL SUSPENSION 30 ML CUP PO PRN (00:28)
[2021-06-16] MEDS ORDERED: clonazePAM 0.5 MG ODT TABLETS SL PRN (00:28)
[2021-06-16] MEDS ORDERED: diazePAM 5 MG TABLET PO ONE (00:28)
[2021-06-16] MEDS ORDERED: MENTHOL/PHENOL 1 EACH UD MM PRN (00:28)
[2021-06-16] MEDS ORDERED: IBUPROFEN 400 MG TABLET (FP) PO PRN (00:28)
[2021-06-16] MEDS ORDERED: diazePAM 5 MG TABLET PO PRN (00:28)
[2021-06-16] MEDS ORDERED: NICOTINE 10 MG CARTRIDGE (INHALER) IH PRN (00:28)
[2021-06-16] MEDS ORDERED: ACETAMINOPHEN 325 MG TABLET (FP) PO PRN ×2 (00:28)
[2021-06-16] MEDS ORDERED: diazePAM 5 MG TABLET ONE (06:10)
[2021-06-16] MEDS ORDERED: hydrOXYzine PAMOATE 25 MG CAPSULE (FP) PO ONE (06:10)
[2021-06-16] MEDS: hydrOXYzine PAMOATE 25 MG CAPSULE (FP) PO SCH ×2 (06:25→11:32)
[2021-06-16] MEDS: diazePAM 5 MG TABLET PO SCH ×4 (06:25→23:03)
[2021-06-16] MEDS: NICOTINE 14 MG/24 HOURS TOPICAL PATCH TD SCH (11:35)
[2021-06-16] MEDS: PRENATAL VITAMINS W/ FOLIC ACID TABLET (FP) PO SCH (11:35)
[2021-06-16] MEDS ORDERED: hydrOXYzine PAMOATE 25 MG CAPSULE (FP) PO PRN (12:40)
[2021-06-16 15:43] LABS: HEMATOCRIT 39.5 % (35.4-49); HEMOGLOBIN 13.6 GM/dL (11.7-16.9); MCH 31.3 pg (25.7-33.7); MCHC 34.5 g/dl (32.0-35.9); MEAN CELL VOLUME 90.8 fl (80-96); MEAN PLT VOLUME 8.5 fl (7.5-11.1); PLATELET COUNT 209 10^3/uL (134-434); RBC 4.35 M/mm3 (4.00-5.60); RDW 13.1 % (11.9-15.9); WHITE BLOOD COUNT 4.1 K/mm3 (4.0-10.0)
[2021-06-16 15:50] LABS: CALCIUM 8.9 mg/dL (8.5-10.1)
[2021-06-16 15:51] LABS: ALBUMIN 3.4 g/dl (3.4-5.0); BLOOD UREA NITROGEN 10.9 mg/dL (7-18)
[2021-06-16 15:54] LABS: CREATININE 1.2 mg/dL (0.55-1.3)
[2021-06-16 15:55] LABS: BILIRUBIN,TOTAL 0.6 mg/dL (0.2-1); TOT PROT 8.9 g/dl (6.4-8.2)
[2021-06-16 16:57] VITALS: TEMP 98.4
[2021-06-16 20:52] VITALS: BP 102/65; PULSE 82
[2021-06-16] MEDS ORDERED: THIAMINE HCL 100 MG TABLET (FP) PO SCH (22:00)
[2021-06-16] MEDS ORDERED: MELATONIN 5 MG TABLETS PO SCH (22:00)
[2021-06-17] MEDS ORDERED: diazePAM 5 MG TABLET PO SCH (06:00)
[2021-06-17] MEDS: NICOTINE 14 MG/24 HOURS TOPICAL PATCH TD SCH (10:40)
[2021-06-17] MEDS: PRENATAL VITAMINS W/ FOLIC ACID TABLET (FP) PO SCH (10:40)
[2021-06-18] MEDS ORDERED: diazePAM 5 MG TABLET PO SCH (06:00)
[2021-06-18] MEDS ORDERED: methaDONE HCL 10 MG TABLET (FOR DETOX USE ONLY) PO ONE (10:00)
[2021-06-19] MEDS ORDERED: diazePAM 5 MG TABLET PO ONE (06:00)
[2021-06-20] MEDS ORDERED: methaDONE HCL 10 MG TABLET (FOR DETOX USE ONLY) PO ONE (10:00)
== END 2021-06-17 09:00 | disposition left against medical advice (07) | DRG 770 ==
LOC: YASAS 20:13 → Y3N 06-16 10:21
PROVIDERS: ADMIT Allergy & Immunology; ATTEND Allergy & Immunology
PROC: HZ2ZZZZ Detoxification Services for Substance Abuse Treatment (ICD-10-PCS; principal; 2021-06-16)
DX: F11.23 Opioid dependence with withdrawal (principal); F10.230 Alcohol dependence with withdrawal, uncomplicated; F13.20 Sedative, hypnotic or anxiolytic dependence, uncomplicated; F14.20 Cocaine dependence, uncomplicated; F17.210 Nicotine dependence, cigarettes, uncomplicated; F19.24 Other psychoactive substance dependence with psychoactive substance-induced mood disorder; F41.9 Anxiety disorder, unspecified; F32.9 Major depressive disorder, single episode, unspecified; L63.9 Alopecia areata, unspecified; M54.31 Sciatica, right side; R63.4 Abnormal weight loss; Z68.23 Body mass index [BMI] 23.0-23.9, adult; Z91.012 Allergy to eggs; Z91.018 Allergy to other foods
CPT/HCPCS: 36415; 80053; 85027; 86780; C9803; U0003; U0005

== ENCOUNTER 2022-07-23 14:05 | Inpatient (IN) | payer OTHER ==
[2022-07-23 19:23] VITALS: BMI 23.1
[2022-07-23] MEDS ORDERED: guaiFENesin 200 MG/10 ML 10 ML UNIT-DOSE CUPS PO PRN (20:55)
[2022-07-23] MEDS ORDERED: ACETAMINOPHEN 325 MG TABLET (FP) PO PRN ×2 (20:55)
[2022-07-23] MEDS ORDERED: MAGNESIUM HYDROX 2400MG/30ML ORAL SUSPENSION 30 ML CUP PO PRN (20:55)
[2022-07-23] MEDS ORDERED: MELATONIN 5 MG TABLETS PO PRN (20:55)
[2022-07-23] MEDS ORDERED: BENZOCAINE/MENTHOL (CHLORASEPTIC ) LOZENGE MM PRN (20:55)
[2022-07-23] MEDS ORDERED: IBUPROFEN 600 MG TABLET (FP) PO PRN (20:55)
[2022-07-23] MEDS ORDERED: NICOTINE 10 MG CARTRIDGE (INHALER) IH PRN (20:55)
[2022-07-23] MEDS ORDERED: METHOCARBAMOL 500 MG TABLET PO PRN (20:55)
[2022-07-23] MEDS ORDERED: MAGNESIUM CITRATE 300 ML BOTTLE PO PRN (20:55)
[2022-07-23] MEDS ORDERED: ONDANSETRON *ODT* 4 MG TABLET SL PRN (20:55)
[2022-07-23] MEDS ORDERED: NALOXONE HCL (KLOXXADO) 8 MG SPRAY NS PRN (20:55)
[2022-07-23] MEDS ORDERED: hydrOXYzine PAMOATE 25 MG CAPSULE (FP) PO PRN (20:55)
[2022-07-23] MEDS ORDERED: IBUPROFEN 400 MG TABLET (FP) PO PRN (20:55)
[2022-07-23] MEDS ORDERED: BISMUTH SUBSALICYLATE 524 MG/30 ML PO PRN (20:55)
[2022-07-23] MEDS ORDERED: DICYCLOMINE HCL 10 MG CAPSULE PO PRN (20:55)
[2022-07-23] MEDS ORDERED: MAG HYDROX/AL HYDROX/SIMETH 30 ML UNIT-DOSE CUP PO PRN (20:55)
[2022-07-23] MEDS ORDERED: P-EPHED 60MG/TRIPROLIDI 2.5MG TABLET PO PRN (20:55)
[2022-07-23] MEDS ORDERED: LOPERAMIDE HCL 2 MG CAPSULE PO PRN (20:55)
[2022-07-23] MEDS ORDERED: NALOXONE HCL 0.4 MG/ML VIAL IM PRN (20:55)
[2022-07-23] MEDS ORDERED: cloNIDine HCL 0.1 MG TABLET PO PRN (20:58)
[2022-07-23] MEDS ORDERED: methaDONE HCL 10 MG TABLET (FOR DETOX USE ONLY) PO ONE (20:58)
[2022-07-23] MEDS: diazePAM 5 MG TABLET PO SCH (23:16)
[2022-07-23] MEDS: THIAMINE HCL 100 MG TABLET (FP) PO SCH (23:19)
[2022-07-24] MEDS: diazePAM 5 MG TABLET PO SCH ×4 (06:32→22:33)
[2022-07-24 11:06] LABS: HEMATOCRIT 29.8 % (35.4-49); MCH 30.5 pg (25.7-33.7); MCHC 33.6 g/dl (32.0-35.9); MEAN CELL VOLUME 90.7 fl (80-96); MEAN PLT VOLUME 7.8 fl (7.5-11.1); PLATELET COUNT 233 10^3/uL (134-434); RBC 3.28 M/mm3 (4.00-5.60); RDW 14.4 % (11.9-15.9); WHITE BLOOD COUNT 3.3 K/mm3 (4.0-10.0)
[2022-07-24] MEDS: PRENATAL VITAMINS W/ FOLIC ACID TABLET (FP) PO SCH (11:23)
[2022-07-24] MEDS: NICOTINE 7 MG/24 HOURS TOPICAL PATCH TD SCH (11:23)
[2022-07-24 11:25] LABS: BLOOD UREA NITROGEN 15.9 mg/dL (7-18); CALCIUM 8.5 mg/dL (8.5-10.1)
[2022-07-24 11:26] LABS: ALBUMIN 2.6 g/dl (3.4-5.0)
[2022-07-24 11:30] LABS: BILIRUBIN,TOTAL 0.2 mg/dL (0.2-1); CREATININE 1.1 mg/dL (0.55-1.3); TOT PROT 7.1 g/dl (6.4-8.2)
[2022-07-24 12:20] LABS: HIV INTERPRETATION NEGATIVE (NEGATIVE)
[2022-07-24] MEDS: THIAMINE HCL 100 MG TABLET (FP) PO SCH (22:33)
[2022-07-25] MEDS: diazePAM 5 MG TABLET PO SCH ×3 (06:01→23:00)
[2022-07-25] MEDS ORDERED: methaDONE HCL 10 MG TABLET (FOR DETOX USE ONLY) PO ONE (10:00)
[2022-07-25] MEDS: NICOTINE 7 MG/24 HOURS TOPICAL PATCH TD SCH (10:18)
[2022-07-25] MEDS: PRENATAL VITAMINS W/ FOLIC ACID TABLET (FP) PO SCH (10:18)
[2022-07-25] MEDS: diazePAM 5 MG TABLET PO PRN (10:19)
[2022-07-25] MEDS: THIAMINE HCL 100 MG TABLET (FP) PO SCH (23:00)
[2022-07-26] MEDS ORDERED: diazePAM 5 MG TABLET PO SCH (06:00)
[2022-07-26 06:50] VITALS: TEMP 97.5
[2022-07-26 09:23] VITALS: BP 106/60; PULSE 77; RESP 18
[2022-07-26] MEDS: PRENATAL VITAMINS W/ FOLIC ACID TABLET (FP) PO SCH (10:44)
[2022-07-26] MEDS: NICOTINE 7 MG/24 HOURS TOPICAL PATCH TD SCH (10:46)
[2022-07-26] MEDS: diazePAM 5 MG TABLET PO PRN (10:47)
[2022-07-27] MEDS ORDERED: diazePAM 5 MG TABLET PO ONE (06:00)
[2022-07-27] MEDS ORDERED: methaDONE HCL 10 MG TABLET (FOR DETOX USE ONLY) PO ONE (10:00)
== END 2022-07-26 12:01 | disposition home or self-care (01) | DRG 773 ==
LOC: YASAS 14:05 → Y3N 22:20
PROVIDERS: ADMIT Allergy & Immunology; ATTEND Surgery
PROC: HZ2ZZZZ Detoxification Services for Substance Abuse Treatment (ICD-10-PCS; principal; 2022-07-23)
DX: F11.23 Opioid dependence with withdrawal (principal); F10.230 Alcohol dependence with withdrawal, uncomplicated; F13.20 Sedative, hypnotic or anxiolytic dependence, uncomplicated; F14.20 Cocaine dependence, uncomplicated; F17.210 Nicotine dependence, cigarettes, uncomplicated; F41.9 Anxiety disorder, unspecified; D64.9 Anemia, unspecified; Z28.311 Partially vaccinated for COVID-19; Z28.9 Immunization not carried out for unspecified reason
CPT/HCPCS: 36415; 80053; 85027; 86780; 87389; 87811; C9803-CS; U0003; U0005

== ENCOUNTER 2024-06-14 12:36 | Inpatient (IN) | payer OTHER ==
[2024-06-14 13:09] VITALS: BMI 22.4
[2024-06-14] MEDS ORDERED: NALOXONE (NARCAN) HCL 4 MG/0.1 ML SPRAY NS PRN (13:37)
[2024-06-14] MEDS ORDERED: NALOXONE HCL 0.4 MG/ML VIAL IM PRN (13:37)
[2024-06-14] MEDS ORDERED: NICOTINE POLACRILEX 2 MG LOZENGE BC PRN (13:37)
[2024-06-14] MEDS ORDERED: DICYCLOMINE HCL 10 MG CAPSULE PO PRN (13:37)
[2024-06-14] MEDS ORDERED: LOPERAMIDE HCL 2 MG CAPSULE PO PRN (13:37)
[2024-06-14] MEDS ORDERED: BENZONATATE 200 MG CAPSULE PO PRN (13:37)
[2024-06-14] MEDS ORDERED: BENZOCAINE/MENTHOL (CHLORASEPTIC ) LOZENGE MM PRN (13:37)
[2024-06-14] MEDS ORDERED: POLYETHYLENE GLYCOL (HEALTHYLAX) 3350 17 GM PACKET PO PRN (13:37)
[2024-06-14] MEDS ORDERED: guaiFENesin 600 MG TABLET.ER (FP) PO PRN (13:37)
[2024-06-14] MEDS ORDERED: BISMUTH SUBSALICYLATE 524 MG/30 ML PO PRN (13:37)
[2024-06-14] MEDS ORDERED: P-EPHED 60MG/TRIPROLIDI 2.5MG TABLET PO PRN (13:37)
[2024-06-14] MEDS ORDERED: hydrOXYzine PAMOATE 25 MG CAPSULE (FP) PO PRN (13:37)
[2024-06-14] MEDS ORDERED: NICOTINE POLACRILEX 2 MG GUM BUC PRN (13:37)
[2024-06-14] MEDS ORDERED: ONDANSETRON *ODT* 4 MG TABLET SL PRN (13:37)
[2024-06-14] MEDS ORDERED: IBUPROFEN 400 MG TABLET (FP) PO PRN (13:37)
[2024-06-14] MEDS ORDERED: ACETAMINOPHEN 325 MG TABLET (FP) PO PRN (13:37)
[2024-06-14] MEDS ORDERED: cloNIDine HCL 0.1 MG TABLET PO PRN (19:10)
[2024-06-14] MEDS: methaDONE HCL 10 MG TABLET (FOR DETOX USE ONLY) PO ONE (19:25)
[2024-06-14] MEDS: chlordiazePOXIDE HCL 25 MG CAPSULE PO PRN (19:26)
[2024-06-14] MEDS: chlordiazePOXIDE HCL 25 MG CAPSULE PO SCH (22:53)
[2024-06-14] MEDS: MELATONIN 5 MG TABLETS PO SCH (22:53)
[2024-06-14] MEDS: THIAMINE 100 MG TABLET PO SCH (22:53)
[2024-06-15] MEDS: PRENATAL VITAMINS W/ FOLIC ACID TABLET (FP) PO SCH (10:15)
[2024-06-15 11:13] LABS: HEMATOCRIT 39.6 % (35.4-49); MCH 30.3 pg (25.7-33.7); MCHC 32.9 g/dl (32.0-35.9); MEAN CELL VOLUME 91.9 fl (80-96); MEAN PLT VOLUME 8.3 fl (7.5-11.1); PLATELET COUNT 209 10^3/uL (134-434); RDW 14.6 % (11.9-15.9); WHITE BLOOD COUNT 4.1 K/mm3 (4.0-10.0)
[2024-06-15 11:19] LABS: CHLORIDE 105 mmol/L (98-107); POTASSIUM 4.3 mmol/L (3.5-5.1); SODIUM 138 mmol/L (136-145)
[2024-06-15 11:21] LABS: CALCIUM 9.1 mg/dL (8.5-10.1)
[2024-06-15 11:22] LABS: ALBUMIN 3.6 g/dl (3.4-5.0); ANION GAP 7 mmol/L (4-13); CO2 26 mmol/L (21-32); GLUCOSE,RANDOM 107 mg/dL (74-106)
[2024-06-15 11:25] LABS: CREATININE 1.2 mg/dL (0.55-1.3); SGOT/AST 32 U/L (15-37); SGPT/ALT 30 U/L (13-61)
[2024-06-15 11:26] LABS: BILIRUBIN,TOTAL 0.5 mg/dL (0.2-1)
[2024-06-15 11:28] LABS: ALK PHOS 100 U/L (45-117)
[2024-06-15 14:12] LABS: HIV INTERPRETATION NEGATIVE (NEGATIVE)
[2024-06-15] MEDS: cloNIDine HCL 0.1 MG TABLET PO SCH (14:13)
[2024-06-15] MEDS: NICOTINE 21 MG/24 HOURS TOPICAL PATCH TD SCH (14:14)
[2024-06-15] MEDS: BUPRENORPHINE/NALOXONE 0.5 MG/0.125 MG FILM SL ONE ×2 (14:41→22:21)
[2024-06-16] MEDS: chlordiazePOXIDE HCL 25 MG CAPSULE PO SCH (05:48)
[2024-06-16] MEDS: IBUPROFEN 600 MG TABLET (FP) PO PRN (05:49)
[2024-06-16] MEDS: METHOCARBAMOL 500 MG TABLET PO PRN (05:50)
[2024-06-16] MEDS ORDERED: methaDONE HCL 10 MG TABLET (FOR DETOX USE ONLY) PO ONE (10:00)
[2024-06-16] MEDS: methaDONE HCL 10 MG TABLET (FOR DETOX USE ONLY) PO ONE (10:02)
[2024-06-16] MEDS: BUPRENORPHINE/NALOXONE 0.5 MG/0.125 MG FILM SL SCH (10:03)
[2024-06-16] MEDS ORDERED: NAPROXEN 500 MG TABLET PO PRN (15:37)
[2024-06-16] MEDS: MAG HYDROX/AL HYDROX/SIMETH 30 ML UNIT-DOSE CUP PO PRN (17:07)
[2024-06-17] MEDS ORDERED: chlordiazePOXIDE HCL 10 MG CAPSULE PO PRN
[2024-06-17] MEDS: NAPROXEN 500 MG TABLET PO PRN (05:20)
[2024-06-17] MEDS: chlordiazePOXIDE HCL 10 MG CAPSULE PO SCH (05:28)
[2024-06-17] MEDS: BUPRENORPHINE/NALOXONE 2 MG/0.5 MG FILM PACKET SL SCH (10:18)
[2024-06-18] MEDS: chlordiazePOXIDE HCL 10 MG CAPSULE PO SCH (05:29)
[2024-06-18] MEDS ORDERED: methaDONE HCL 10 MG TABLET (FOR DETOX USE ONLY) PO ONE (10:00)
[2024-06-18] MEDS: BUPRENORPHINE/NALOXONE 4 MG/1 MG FILM PACKET SL SCH (10:11)
[2024-06-18] MEDS: methaDONE HCL 10 MG TABLET (FOR DETOX USE ONLY) PO ONE (10:12)
[2024-06-18] MEDS: MAGNESIUM HYDROX 2400MG/30ML ORAL SUSPENSION 30 ML CUP PO PRN (12:32)
[2024-06-18] MEDS: DOCUSATE SODIUM 100 MG CAPSULE (FP) PO SCH (21:29)
[2024-06-18] MEDS: diphenhydrAMINE HCL 25 MG CAPSULE (FP) PO PRN (21:30)
[2024-06-19] MEDS: NAPROXEN 500 MG TABLET PO PRN (05:20)
[2024-06-19] MEDS: chlordiazePOXIDE HCL 10 MG CAPSULE PO ONE (05:20)
[2024-06-19 06:14] VITALS: RESP 16
[2024-06-19] MEDS: BUPRENORPHINE/NALOXONE 8 MG/2 MG FILM PACKET SL SCH (09:04)
[2024-06-19 09:18] VITALS: BP 147/80; PULSE 80; TEMP 97.7
[2024-06-20] MEDS ORDERED: BUPRENORPHINE/NALOXONE 8 MG/2 MG FILM PACKET SL SCH (10:00)
== END 2024-06-19 09:20 | disposition home or self-care (01) | DRG 773 ==
LOC: YASAS 12:36 → Y3N 14:21
PROVIDERS: ADMIT Allergy & Immunology; ATTEND Surgery
PROC: HZ2ZZZZ Detoxification Services for Substance Abuse Treatment (ICD-10-PCS; principal; 2024-06-14)
DX: F11.23 Opioid dependence with withdrawal (principal); F10.230 Alcohol dependence with withdrawal, uncomplicated; F14.20 Cocaine dependence, uncomplicated; F13.20 Sedative, hypnotic or anxiolytic dependence, uncomplicated; F12.20 Cannabis dependence, uncomplicated; F17.210 Nicotine dependence, cigarettes, uncomplicated; G47.00 Insomnia, unspecified; K59.00 Constipation, unspecified
CPT/HCPCS: 36415; 80053; 80305; 80307; 85027; 86780; 86803; 87389; 93005; 93010

== ENCOUNTER 2024-09-26 13:02 | Inpatient (IN) | payer OTHER ==
[2024-09-26 14:35] VITALS: BMI 21.2
[2024-09-26] MEDS ORDERED: LOPERAMIDE HCL 2 MG CAPSULE PO PRN (15:04)
[2024-09-26] MEDS ORDERED: NICOTINE POLACRILEX 2 MG LOZENGE BC PRN (15:04)
[2024-09-26] MEDS ORDERED: BENZONATATE 200 MG CAPSULE PO PRN (15:04)
[2024-09-26] MEDS ORDERED: ACETAMINOPHEN 325 MG TABLET (FP) PO PRN (15:04)
[2024-09-26] MEDS ORDERED: BENZOCAINE/MENTHOL (CHLORASEPTIC ) LOZENGE MM PRN (15:04)
[2024-09-26] MEDS ORDERED: IBUPROFEN 400 MG TABLET (FP) PO PRN (15:04)
[2024-09-26] MEDS ORDERED: BISMUTH SUBSALICYLATE 524 MG/30 ML PO PRN (15:04)
[2024-09-26] MEDS ORDERED: MAGNESIUM HYDROX 2400MG/30ML ORAL SUSPENSION 30 ML CUP PO PRN (15:04)
[2024-09-26] MEDS ORDERED: P-EPHED 60MG/TRIPROLIDI 2.5MG TABLET PO PRN (15:04)
[2024-09-26] MEDS ORDERED: guaiFENesin 600 MG TABLET.ER (FP) PO PRN (15:04)
[2024-09-26] MEDS ORDERED: NICOTINE POLACRILEX 2 MG GUM BUC PRN (15:04)
[2024-09-26] MEDS ORDERED: ONDANSETRON *ODT* 4 MG TABLET SL PRN (15:04)
[2024-09-26] MEDS ORDERED: DICYCLOMINE HCL 10 MG CAPSULE PO PRN (15:04)
[2024-09-26] MEDS ORDERED: POLYETHYLENE GLYCOL (HEALTHYLAX) 3350 17 GM PACKET PO PRN (15:04)
[2024-09-26] MEDS ORDERED: NALOXONE (NARCAN) HCL 4 MG/0.1 ML SPRAY NS PRN (15:04)
[2024-09-26] MEDS ORDERED: IBUPROFEN 600 MG TABLET (FP) PO ONE (17:53)
[2024-09-26] MEDS: IBUPROFEN 600 MG TABLET (FP) PO PRN (17:54)
[2024-09-26] MEDS: MAG HYDROX/AL HYDROX/SIMETH 30 ML UNIT-DOSE CUP PO PRN (19:59)
[2024-09-26] MEDS: hydrOXYzine PAMOATE 25 MG CAPSULE (FP) PO PRN (19:59)
[2024-09-26] MEDS: MELATONIN 5 MG TABLETS PO SCH (22:16)
[2024-09-26] MEDS: THIAMINE 100 MG TABLET PO SCH (22:16)
[2024-09-26] MEDS ORDERED: chlordiazePOXIDE HCL 25 MG CAPSULE PO PRN (22:59)
[2024-09-26] MEDS: chlordiazePOXIDE HCL 25 MG CAPSULE PO SCH (23:33)
[2024-09-26] MEDS: GABAPENTIN 100 MG CAPSULE PO SCH (23:33)
[2024-09-26] MEDS: rOPINIRole HCL 0.5 MG TABLET PO SCH (23:56)
[2024-09-27] MEDS: PRENATAL VITAMINS W/ FOLIC ACID TABLET (FP) PO SCH (11:00)
[2024-09-27] MEDS: methaDONE HCL 10 MG TABLET PO ONE (11:04)
[2024-09-27] MEDS ORDERED: methaDONE HCL 10 MG TABLET PO PRN (12:08)
[2024-09-27] MEDS: cloNIDine HCL 0.1 MG TABLET PO SCH (14:12)
[2024-09-27 16:02] LABS: HEMOGLOBIN 13.2 GM/dL (11.7-16.9); MCH 29.1 pg (25.7-33.7); MCHC 32.9 g/dl (32.0-35.9); MEAN CELL VOLUME 88.4 fl (80-96); MEAN PLT VOLUME 8.1 fl (7.5-11.1); PLATELET COUNT 268 10^3/uL (134-434); RBC 4.52 M/mm3 (4.00-5.60); WHITE BLOOD COUNT 3.7 K/mm3 (4.0-10.0)
[2024-09-27 18:27] LABS: CHLORIDE 108 mmol/L (98-107); POTASSIUM 4.1 mmol/L (3.5-5.1); SODIUM 139 mmol/L (136-145)
[2024-09-27 18:31] LABS: ALBUMIN 3.3 g/dl (3.4-5.0); BLOOD UREA NITROGEN 12.9 mg/dL (7-18)
[2024-09-27 18:32] LABS: ANION GAP 6 mmol/L (4-13); CALCIUM 9.3 mg/dL (8.5-10.1); CO2 25 mmol/L (21-32); GLUCOSE,RANDOM 104 mg/dL (74-106)
[2024-09-27 18:34] LABS: CREATININE 1.1 mg/dL (0.55-1.3)
[2024-09-27 18:35] LABS: SGOT/AST 29 U/L (15-37)
[2024-09-27 18:36] LABS: BILIRUBIN,TOTAL 0.4 mg/dL (0.2-1); TOT PROT 7.5 g/dl (6.4-8.2)
[2024-09-27 18:37] LABS: ALK PHOS 93 U/L (45-117)
[2024-09-27 18:39] LABS: SGPT/ALT 25 U/L (13-61)
[2024-09-27] MEDS: rOPINIRole HCL 0.25 MG TABLET PO SCH (23:31)
[2024-09-28] MEDS: chlordiazePOXIDE HCL 25 MG CAPSULE PO SCH (05:24)
[2024-09-28] MEDS: methaDONE 40 MG, methaDONE 10 MG PO ONE (10:32)
[2024-09-29] MEDS ORDERED: chlordiazePOXIDE HCL 10 MG CAPSULE PO PRN
[2024-09-29] MEDS ORDERED: cloNIDine HCL 0.1 MG TABLET PO PRN
[2024-09-29] MEDS: chlordiazePOXIDE HCL 10 MG CAPSULE PO SCH (05:31)
[2024-09-29] MEDS: methaDONE 40 MG, methaDONE 20 MG PO ONE (10:06)
[2024-09-29] MEDS: METHOCARBAMOL 500 MG TABLET PO PRN (18:01)
[2024-09-30] MEDS: chlordiazePOXIDE HCL 10 MG CAPSULE PO SCH (05:36)
[2024-09-30] MEDS: methaDONE 40 MG, methaDONE 30 MG PO ONE (09:41)
[2024-10-01] MEDS: chlordiazePOXIDE HCL 10 MG CAPSULE PO ONE (05:57)
[2024-10-01] MEDS: methaDONE HCL 40 MG DISPERSABLE TABLET PO ONE (09:59)
[2024-10-01] MEDS: NALOXONE (NYS OPIOID OVERDOSE PROGRAM) 4 MG/0.1 ML SPRAY NS SCH (10:34)
[2024-10-02 09:21] VITALS: BP 133/78; PULSE 97; RESP 16; TEMP 97.8
[2024-10-02] MEDS ORDERED: methaDONE 80 MG, methaDONE 10 MG PO ONE (10:00)
== END 2024-10-02 08:57 | disposition home or self-care (01) | DRG 773 ==
LOC: YASAS 13:02 → Y6N 17:54
PROVIDERS: ADMIT Allergy & Immunology; ATTEND Surgery
PROC: HZ2ZZZZ Detoxification Services for Substance Abuse Treatment (ICD-10-PCS; principal; 2024-09-26)
DX: F11.23 Opioid dependence with withdrawal (principal); F10.230 Alcohol dependence with withdrawal, uncomplicated; F14.20 Cocaine dependence, uncomplicated; F17.210 Nicotine dependence, cigarettes, uncomplicated; G25.81 Restless legs syndrome; M79.2 Neuralgia and neuritis, unspecified; M54.31 Sciatica, right side; M54.32 Sciatica, left side; R63.4 Abnormal weight loss; Z68.21 Body mass index [BMI] 21.0-21.9, adult
CPT/HCPCS: 36415; 80053; 80305; 80307; 85027

== ENCOUNTER 2025-04-20 14:27 | Inpatient (IN) | payer OTHER ==
[2025-04-20 15:12] VITALS: BMI 21.0
[2025-04-20] MEDS ORDERED: hydrOXYzine PAMOATE 25 MG CAPSULE (FP) PO PRN (16:58)
[2025-04-20] MEDS ORDERED: LOPERAMIDE HCL 2 MG CAPSULE PO PRN (16:58)
[2025-04-20] MEDS ORDERED: ACETAMINOPHEN 325 MG TABLET (FP) PO PRN (16:58)
[2025-04-20] MEDS ORDERED: POLYETHYLENE GLYCOL (HEALTHYLAX) 3350 17 GM PACKET PO PRN (16:58)
[2025-04-20] MEDS ORDERED: IBUPROFEN 600 MG TABLET (FP) PO PRN (16:58)
[2025-04-20] MEDS ORDERED: IBUPROFEN 400 MG TABLET (FP) PO PRN (16:58)
[2025-04-20] MEDS ORDERED: BENZONATATE 200 MG CAPSULE PO PRN (16:58)
[2025-04-20] MEDS ORDERED: MAG HYDROX/AL HYDROX/SIMETH 30 ML UNIT-DOSE CUP PO PRN (16:58)
[2025-04-20] MEDS ORDERED: guaiFENesin 600 MG TABLET.ER (FP) PO PRN (16:58)
[2025-04-20] MEDS ORDERED: BENZOCAINE/MENTHOL (CHLORASEPTIC ) LOZENGE MM PRN (16:58)
[2025-04-20] MEDS ORDERED: BISMUTH SUBSALICYLATE 524 MG/30 ML PO PRN (16:58)
[2025-04-20] MEDS ORDERED: NALOXONE (NARCAN) HCL 4 MG/0.1 ML SPRAY NS PRN (16:58)
[2025-04-20] MEDS ORDERED: DICYCLOMINE HCL 10 MG CAPSULE PO PRN (16:58)
[2025-04-20] MEDS ORDERED: METHOCARBAMOL 500 MG TABLET PO PRN (16:58)
[2025-04-20] MEDS ORDERED: MAGNESIUM HYDROX 2400MG/30ML ORAL SUSPENSION 30 ML CUP PO PRN (16:58)
[2025-04-20] MEDS: MELATONIN 5 MG TABLETS PO SCH (22:06)
[2025-04-20] MEDS: THIAMINE 100 MG TABLET PO SCH (22:06)
[2025-04-21] MEDS: PRENATAL VITAMINS W/ FOLIC ACID TABLET (FP) PO SCH (10:18)
[2025-04-21] MEDS: ONDANSETRON *ODT* 4 MG TABLET SL PRN (17:41)
[2025-04-21] MEDS: MELATONIN 5 MG TABLETS PO SCH (22:34)
[2025-04-22] MEDS: GABAPENTIN 300 MG CAPSULE PO SCH (13:05)
[2025-04-22 18:04] LABS: CO2 24.0 mmol/L (21-32)
[2025-04-22 18:06] LABS: SGPT/ALT 887.0 U/L (13-61)
[2025-04-22 18:07] LABS: CREATININE 1.4 mg/dL (0.55-1.3)
[2025-04-22 18:09] LABS: ALK PHOS 181.0 U/L (45-117); TOT PROT 8.5 g/dl (6.4-8.2)
[2025-04-22 18:29] LABS: GLUCOSE,RANDOM 82.0 mg/dL (74-106); SGOT/AST 1411.0 U/L (15-37)
[2025-04-23 08:34] VITALS: BP 101/61; PULSE 61; RESP 18; TEMP 96.7
== END 2025-04-23 09:49 | disposition left against medical advice (07) | DRG 770 ==
LOC: YASAS 14:27 → Y3N 18:02
PROVIDERS: ADMIT Neuromusculoskeletal Medicine & OMM; ATTEND Allergy & Immunology
PROC: HZ2ZZZZ Detoxification Services for Substance Abuse Treatment (ICD-10-PCS; principal; 2025-04-20)
DX: F11.23 Opioid dependence with withdrawal (principal); F10.230 Alcohol dependence with withdrawal, uncomplicated; F13.230 Sedative, hypnotic or anxiolytic dependence with withdrawal, uncomplicated; F17.210 Nicotine dependence, cigarettes, uncomplicated; F19.282 Other psychoactive substance dependence with psychoactive substance-induced sleep disorder; F19.24 Other psychoactive substance dependence with psychoactive substance-induced mood disorder; G25.81 Restless legs syndrome
CPT/HCPCS: 36415; 80053; 86780; 93005; 93010; Q0162

== ENCOUNTER 2025-08-16 16:28 | Inpatient (IN) | payer OTHER ==
[2025-08-16 16:50] VITALS: BMI 23.1
[2025-08-16] MEDS ORDERED: BENZONATATE 200 MG CAPSULE PO PRN (17:52)
[2025-08-16] MEDS ORDERED: NICOTINE POLACRILEX 2 MG LOZENGE BC PRN (17:52)
[2025-08-16] MEDS ORDERED: MAGNESIUM HYDROX 2400MG/30ML ORAL SUSPENSION 30 ML CUP PO PRN (17:52)
[2025-08-16] MEDS ORDERED: MAG HYDROX/AL HYDROX/SIMETH 30 ML UNIT-DOSE CUP PO PRN (17:52)
[2025-08-16] MEDS ORDERED: BISMUTH SUBSALICYLATE 524 MG/30 ML PO PRN (17:52)
[2025-08-16] MEDS ORDERED: hydrOXYzine PAMOATE 25 MG CAPSULE (FP) PO PRN (17:52)
[2025-08-16] MEDS ORDERED: BENZOCAINE/MENTHOL (CHLORASEPTIC ) LOZENGE MM PRN (17:52)
[2025-08-16] MEDS ORDERED: NALOXONE (NARCAN) HCL 4 MG/0.1 ML SPRAY NS PRN (17:52)
[2025-08-16] MEDS ORDERED: ACETAMINOPHEN 325 MG TABLET (FP) PO PRN (17:52)
[2025-08-16] MEDS ORDERED: POLYETHYLENE GLYCOL (HEALTHYLAX) 3350 17 GM PACKET PO PRN (17:52)
[2025-08-16] MEDS ORDERED: guaiFENesin 600 MG TABLET.ER (FP) PO PRN (17:52)
[2025-08-16] MEDS ORDERED: IBUPROFEN 600 MG TABLET (FP) PO PRN (17:52)
[2025-08-16] MEDS ORDERED: DICYCLOMINE HCL 10 MG CAPSULE PO PRN (17:52)
[2025-08-16] MEDS ORDERED: ONDANSETRON *ODT* 4 MG TABLET SL PRN (17:52)
[2025-08-16] MEDS ORDERED: IBUPROFEN 400 MG TABLET (FP) PO PRN (17:52)
[2025-08-16] MEDS ORDERED: NICOTINE POLACRILEX 2 MG GUM BUC PRN (17:52)
[2025-08-16] MEDS ORDERED: LOPERAMIDE HCL 2 MG CAPSULE PO PRN (17:52)
[2025-08-16] MEDS ORDERED: METHOCARBAMOL 500 MG TABLET PO PRN (17:52)
[2025-08-16] MEDS: MELATONIN 5 MG TABLETS PO SCH (22:29)
[2025-08-16] MEDS: THIAMINE 100 MG TABLET PO SCH (22:29)
[2025-08-17] MEDS: PRENATAL VITAMINS W/ FOLIC ACID TABLET (FP) PO SCH (10:31)
[2025-08-17] MEDS: NICOTINE 21 MG/24 HOURS TOPICAL PATCH TD SCH (10:32)
[2025-08-17 12:36] LABS: MCHC 33.6 g/dl (32.3-36.5); MEAN CELL VOLUME 90.2 fl (79.0-92.2); MEAN PLT VOLUME 10.4 fl (9.4-12.4); RDW 13.2 % (12.1-15.9)
[2025-08-17 12:42] LABS: GLUCOSE,RANDOM 67 mg/dL (74-106); TOT PROT 6.5 g/dl (6.4-8.2)
[2025-08-17 12:43] LABS: CO2 24 mmol/L (21-32)
[2025-08-17 12:45] LABS: ALK PHOS 81 U/L (40-150)
[2025-08-17 12:47] LABS: SGPT/ALT 14 U/L (0-55)
[2025-08-17 12:48] LABS: CREATININE 0.99 mg/dL (0.55-1.3); SGOT/AST 31 U/L (5-34)
[2025-08-17] MEDS: MELATONIN 5 MG TABLETS PO SCH (22:05)
[2025-08-18 09:02] VITALS: BP 122/86; PULSE 64; RESP 16; TEMP 97.1
== END 2025-08-18 10:44 | disposition left against medical advice (07) | DRG 770 ==
LOC: YASAS 16:28 → Y3N 19:57
PROVIDERS: ADMIT Neuromusculoskeletal Medicine & OMM; ATTEND Allergy & Immunology
PROC: HZ2ZZZZ Detoxification Services for Substance Abuse Treatment (ICD-10-PCS; principal; 2025-08-16)
DX: F11.23 Opioid dependence with withdrawal (principal); F10.230 Alcohol dependence with withdrawal, uncomplicated; F13.230 Sedative, hypnotic or anxiolytic dependence with withdrawal, uncomplicated; F14.20 Cocaine dependence, uncomplicated; F17.210 Nicotine dependence, cigarettes, uncomplicated; F19.282 Other psychoactive substance dependence with psychoactive substance-induced sleep disorder; F19.24 Other psychoactive substance dependence with psychoactive substance-induced mood disorder; G25.81 Restless legs syndrome
CPT/HCPCS: 36415; 80053; 80307; 85027; 86780; 93005; 93010